=== PATIENT | male | born 1955 | race African-American/Black ===

== ENCOUNTER 2016-04-09 20:28 | Emergency (ER) | payer OTHER, MEDICAID ==
[~2016-04-09] VITALS: Ht 170.2 cm; Wt 81.6 kg
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
[2016-04-09] MEDS: Methocarbamol 750mg tab ORAL ONE ×2 (21:37→21:39)
[2016-04-09] MEDS ORDERED: ROBAXIN-750750 MG PO (23:04)
[2016-04-09] MEDS ORDERED: IBUPROFEN600 MG ORAL (23:04)
[2016-04-09 23:10] VITALS: BP 134/76
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
== END 2016-04-09 23:45 | disposition home or self-care (01) ==
LOC: EMR 21:27
DX: M25.461 Effusion, right knee (principal); T14.8 Other injury of unspecified body region; V43.92XA Unspecified car occupant injured in collision with other type car in traffic accident, initial encounter; Y92.410 Unspecified street and highway as the place of occurrence of the external cause; Y99.8 Other external cause status
CPT/HCPCS: 72040; 99284